=== PATIENT | female | born 1980 | race Caucasian/White ===

== ENCOUNTER → 2018-04-04 | Outpatient (CLI) | payer OTHER ==
[2018-04-04 09:46] LABS: FREE T4 0.87 NG/DL (0.76-1.46); THYROID STIMULATING HORMONE 3.98 uIU/ML (0.358-3.740)
[2018-04-04 09:49] LABS: THYROID PEROXIDASE ANTIBODY 34.7 U/ML (<60.0)
== END ==
LOC: M WUC 08:35
PROVIDERS: ATTEND Nurse Practitioner Family
DX: R94.6 Abnormal results of thyroid function studies (principal)

== ENCOUNTER → 2018-06-10 | Outpatient (CLI) | payer OTHER ==
[2018-06-10 13:15] LABS: FREE T4 0.88 NG/DL (0.76-1.46); THYROID STIMULATING HORMONE 2.61 uIU/ML (0.358-3.740)
== END ==
LOC: M WUC 09:16
PROVIDERS: ATTEND Nurse Practitioner Family
DX: R94.6 Abnormal results of thyroid function studies (principal)

== ENCOUNTER → 2018-12-13 | Outpatient (CLI) | payer BC, OTHER ==
[2018-12-13 14:03] LABS: FREE T4 0.88 NG/DL (0.76-1.46)
== END ==
LOC: M WUC 09:59
PROVIDERS: ATTEND Nurse Practitioner Family
DX: R94.6 Abnormal results of thyroid function studies (principal)

== ENCOUNTER → 2018-12-22 | Outpatient (CLI) | payer BC ==
[2018-12-22 12:15] LABS: ALBUMIN 3.6 GM/DL (3.2-5.2); BILIRUBIN,DIRECT 0.2 MG/DL (0.0-0.2); BILIRUBIN,TOTAL 0.6 MG/DL (0.2-1.0); TOTAL PROTEIN 6.5 GM/DL (6.4-8.2)
== END ==
LOC: M WUC 10:27
PROVIDERS: ATTEND Family Medicine
DX: R94.5 Abnormal results of liver function studies (principal)

== ENCOUNTER → 2019-04-19 | Outpatient (CLI) | payer BC ==
[2019-04-19 10:50] LABS: THYROID STIMULATING HORMONE 3.19 uIU/ML (0.358-3.740)
[2019-04-19 10:57] LABS: ESTRADIOL 136.8 PG/ML; PROGESTERONE 38.08 NG/ML
== END ==
LOC: M LAB 09:43
PROVIDERS: ATTEND Obstetrics & Gynecology Reproductive Endocrinology
DX: E28.9 Ovarian dysfunction, unspecified (principal)

== ENCOUNTER → 2019-06-12 | Outpatient (CLI) | payer BC ==
[2019-06-12 10:38] LABS: ESTRADIOL 76.7 PG/ML; PROGESTERONE 64.82 NG/ML
== END ==
LOC: M LAB 08:57
PROVIDERS: ATTEND Obstetrics & Gynecology Reproductive Endocrinology
DX: Z32.00 Encounter for pregnancy test, result unknown (principal); E28.9 Ovarian dysfunction, unspecified

== ENCOUNTER → 2019-06-19 | Outpatient (CLI) | payer BC ==
[2019-06-19 10:32] LABS: HCG, SERUM QUANTITATIVE < 1.0 MIU/ML
[2019-06-19 10:42] LABS: PROGESTERONE 19.92 NG/ML
== END ==
LOC: M LAB 08:53
PROVIDERS: ATTEND Obstetrics & Gynecology Reproductive Endocrinology
DX: Z32.00 Encounter for pregnancy test, result unknown (principal)

== ENCOUNTER → 2020-01-02 | Outpatient (CLI) | payer BC ==
[2020-01-02 09:24] LABS: BASO # 0.1 10^3/uL (0.0-0.2); BASO % 0.7 % (0.0-1.0); EOS # 0.3 10^3/uL (0.0-0.5); EOS % 2.5 % (0.0-3.0); HEMATOCRIT 42.5 % (36.0-47.0); HEMOGLOBIN 14.9 g/dl (12.0-15.5); LYMPH # 3.5 10^3/uL (1.5-5.0); LYMPH % 31.1 % (24.0-44.0); MEAN CORPUSCULAR HEMOGLOBIN 35.1 pg (27.0-33.0); MEAN CORPUSCULAR HGB CONC 35.1 g/dl (32.0-36.5); MONO % 8.4 % (0.0-5.0); NEUTROPHILS # 6.5 10^3/uL (1.5-8.5); NEUTROPHILS % 56.9 % (36.0-66.0); PLATELET COUNT, AUTOMATED 393 10^3/uL (150-450); RED BLOOD COUNT 4.25 10^6/uL (4.00-5.40); WHITE BLOOD COUNT 11.4 10^3/uL (4.0-10.0)
[2020-01-02 09:43] LABS: ALBUMIN 3.5 GM/DL (3.2-5.2); ALT/SGPT 78 U/L (12-78); BILIRUBIN,TOTAL 0.3 MG/DL (0.2-1.0); BLOOD UREA NITROGEN 7 MG/DL (7-18); CALCIUM LEVEL 9.6 MG/DL (8.5-10.1); CARBON DIOXIDE LEVEL 26 MEQ/L (21-32); CHLORIDE LEVEL 110 MEQ/L (98-107); CREATININE FOR GFR 0.55 MG/DL (0.55-1.30); GLOMERULAR FILTRATION RATE > 60.0 (>60); GLUCOSE, FASTING 97 MG/DL (70-100); POTASSIUM SERUM 4.3 MEQ/L (3.5-5.1); SODIUM LEVEL 141 MEQ/L (136-145); TOTAL PROTEIN 6.6 GM/DL (6.4-8.2)
[2020-01-02 09:53] LABS: TOTAL 25(OH) VITAMIN D 29.7 NG/ML (30.0-100.0)
[2020-01-02 10:05] LABS: HEPATITIS B SURFACE ANTIGEN NEGATIVE (NEGATIVE)
[2020-01-02 10:32] LABS: HEPATITIS C VIRUS ABY INDEX 0.1 INDEX (<0.8); HIV 1&2 SCREEN CENTAUR NEGATIVE (NEGATIVE)
== END ==
LOC: M LAB 08:57
PROVIDERS: ATTEND Obstetrics & Gynecology Reproductive Endocrinology
DX: E28.9 Ovarian dysfunction, unspecified (principal)

== ENCOUNTER → 2020-03-08 | Outpatient (CLI) | payer BC ==
[2020-03-08 10:11] LABS: ESTRADIOL 105.8 PG/ML; PROGESTERONE 51.9 NG/ML
== END ==
LOC: M LAB 08:21
PROVIDERS: ATTEND Obstetrics & Gynecology Reproductive Endocrinology
DX: E28.9 Ovarian dysfunction, unspecified (principal)

== ENCOUNTER → 2020-03-13 | Outpatient (CLI) | payer BC ==
[2020-03-13 07:35] LABS: HCG, SERUM QUANTITATIVE < 1.0 MIU/ML
[2020-03-13 09:23] LABS: PROGESTERONE 48.32 NG/ML
== END ==
LOC: M LAB 06:38
PROVIDERS: ATTEND Obstetrics & Gynecology Reproductive Endocrinology
DX: Z32.00 Encounter for pregnancy test, result unknown (principal)

== ENCOUNTER → 2020-05-01 | Outpatient (CLI) | payer BC ==
[2020-05-01 11:09] LABS: ESTRADIOL 130.5 PG/ML; PROGESTERONE 26.1 NG/ML
== END ==
LOC: M LAB 08:16
PROVIDERS: ATTEND Obstetrics & Gynecology Reproductive Endocrinology
DX: E28.9 Ovarian dysfunction, unspecified (principal)

== ENCOUNTER → 2020-06-12 | Outpatient (REF) | payer BC ==
[2020-06-12 17:36] LABS: HEMATOCRIT 35.6 % (36.0-47.0); HEMOGLOBIN 11.5 g/dl (12.0-15.5); MEAN CORPUSCULAR HEMOGLOBIN 31.6 pg (27.0-33.0); MEAN CORPUSCULAR HGB CONC 32.3 g/dl (32.0-36.5); MEAN CORPUSCULAR VOLUME 97.8 fl (80.0-96.0); PLATELET COUNT, AUTOMATED 424 10^3/uL (150-450); RED BLOOD COUNT 3.64 10^6/uL (4.00-5.40); WHITE BLOOD COUNT 25.2 10^3/uL (4.0-10.0)
[2020-06-12 18:50] LABS: HEPATITIS C VIRUS ABY INDEX < 0.0 INDEX (<0.8); HIV 1&2 SCREEN CENTAUR NEGATIVE (NEGATIVE)
== END ==
LOC: M LAB REF 16:45
PROVIDERS: ATTEND Obstetrics & Gynecology
DX: O09.511 Supervision of elderly primigravida, first trimester (principal)

== ENCOUNTER → 2020-07-05 | Outpatient (CLI) | payer BC ==
--- NOTE | 2020-07-05 17:04 | REP ---
INDICATION: NUCHAL TRANS - TWINS. COMPARISON: None available. TECHNIQUE: Real-time sonographic evaluation of the gravid uterus performed. FINDINGS: There is a living intrauterine twin gestation, diamniotic dichorionic. Estimated gestational age is13 weeks 0 days, EDC 01/10/2021. Closed cervical length is measured at 3.4 cm. Fetus a: Presentation: Transverse head maternal right Placenta posterior, grade 0, without evidence of placenta previa. heart rate is recorded at 144 beats per minute. Amniotic fluid is subjectively normal. [place]-rump length 68 mm equals 13 weeks 0 days. Nuchal translucency 2.2 mm is normal. Fetus b: Presentation: Transverse, left Placenta anterior, grade 0, without evidence of placenta previa. heart rate is recorded at 160 beats per minute. Amniotic fluid is subjectively normal. [place]-rump length 66 mm equals 13 weeks 0 days. Nuchal translucency 1.3 mm is normal. IMPRESSION: Viable intrauterine twin gestation as above. <Electronically signed by Jose Roberto Horne > 07/05/20 [id number]
== END ==
LOC: M WHC 14:24
PROVIDERS: ATTEND Obstetrics & Gynecology
DX: O09.511 Supervision of elderly primigravida, first trimester (principal); Z3A.13 13 weeks gestation of pregnancy

== ENCOUNTER → 2020-07-11 | Outpatient (REF) | payer BC | LOC: M LAB REF 12:16 | PROVIDERS: ATTEND Obstetrics & Gynecology | DX: Z34.01 Encounter for supervision of normal first pregnancy, first trimester (principal) ==

== ENCOUNTER → 2020-08-26 | Outpatient (CLI) | payer BC ==
--- NOTE | 2020-08-28 07:32 | REP ---
INDICATION: ANATOMY - TWINS COMPARISON: 07/05/2020 TECHNIQUE: Transabdominal obstetrical ultrasound with color Doppler evaluation. FINDINGS: Examination demonstrates diamniotic dichorionic twin gestation. Cervix measures 3.3 cm in length and appears closed. Gestational age by LMP at 20 weeks 0 days with estimated date of delivery 01/13/2021. TWIN A: Twin A identified in variable presentation along the maternal left side. Placenta is noted anterior and grade 0 without evidence for placenta previa or abruption. motion is appreciated. Amniotic fluid volume is within normal limits. FHR equals 139 beats per minute. Estimated weight by current measurements 345 grams (63rd percentile). Gestational age by current measurements: 20 weeks 0 days. Limited anatomical assessment demonstrates normal cranium, cerebral ventricles, choroid plexus, cerebellum/posterior fossa, cisterna magna, facial features, diaphragm, stomach, three-vessel cord/abdominal wall, kidneys/bladder, spine and extremities. Limited evaluation of the heart/ventricular outflow tracts noted. Echogenic focus within the left cardiac ventricle likely prominent chordae tendineae. TWIN B: Twin B identified in variable presentation along the maternal right side. Placenta is noted posterior and grade 0 without evidence for placenta previa or abruption. motion is appreciated. Amniotic fluid volume is within normal limits. FHR equals 144 beats per minute. Estimated weight by current measurements 322 grams (42nd percentile). Gestational age by current measurements: 20 weeks 0 days. Limited anatomical assessment demonstrates normal cranium, cerebral ventricles, choroid plexus, cerebellum/posterior fossa, cisterna magna, facial features, diaphragm, stomach, three-vessel cord/abdominal wall, kidneys/bladder, spine and extremities. Limited evaluation of the heart/ventricular outflow tracts noted. IMPRESSION: Diamniotic dichorionic twin gestation demonstrating relatively appropriate growth. Anatomical limitations as noted above may warrant follow-up. <Electronically signed by Govind Card > 08/28/20 [id number]
== END ==
LOC: M WHC 08:14
PROVIDERS: ATTEND Obstetrics & Gynecology
DX: O30.002 Twin pregnancy, unspecified number of placenta and unspecified number of amniotic sacs, second trimester (principal); Z3A.20 20 weeks gestation of pregnancy

== ENCOUNTER → 2020-10-04 | Outpatient (CLI) | payer BC ==
[2020-10-04 13:12] LABS: HEMATOCRIT 28.8 % (36.0-47.0); HEMOGLOBIN 9.7 g/dl (12.0-15.5); MEAN CORPUSCULAR HEMOGLOBIN 30.6 pg (27.0-33.0); MEAN CORPUSCULAR HGB CONC 33.7 g/dl (32.0-36.5); MEAN CORPUSCULAR VOLUME 90.9 fl (80.0-96.0); PLATELET COUNT, AUTOMATED 367 10^3/uL (150-450); RED BLOOD COUNT 3.17 10^6/uL (4.00-5.40); WHITE BLOOD COUNT 10.7 10^3/uL (4.0-10.0)
== END ==
LOC: M LAB 11:04
PROVIDERS: ATTEND Obstetrics & Gynecology
DX: Z34.82 Encounter for supervision of other normal pregnancy, second trimester (principal)

== ENCOUNTER → 2020-10-23 | Outpatient (REF) | payer BC ==
[2020-10-23 13:11] LABS: CREATININE, URINE 29.4 MG/DL; URINE TOTAL PROTEIN 8.2 MG/DL (0-12)
== END ==
LOC: M LAB REF 12:40
PROVIDERS: ATTEND Obstetrics & Gynecology
DX: O30.003 Twin pregnancy, unspecified number of placenta and unspecified number of amniotic sacs, third trimester (principal); Z3A.00 Weeks of gestation of pregnancy not specified

== ENCOUNTER → 2020-10-23 | Outpatient (CLI) | payer BC ==
[2020-10-23 12:53] LABS: HEMATOCRIT 30.7 % (36.0-47.0); HEMOGLOBIN 10.6 g/dl (12.0-15.5); MEAN CORPUSCULAR HEMOGLOBIN 31.5 pg (27.0-33.0); MEAN CORPUSCULAR HGB CONC 34.5 g/dl (32.0-36.5); MEAN CORPUSCULAR VOLUME 91.4 fl (80.0-96.0); PLATELET COUNT, AUTOMATED 381 10^3/uL (150-450); RED BLOOD COUNT 3.36 10^6/uL (4.00-5.40); WHITE BLOOD COUNT 10.7 10^3/uL (4.0-10.0)
[2020-10-23 13:08] LABS: ALT/SGPT 18 U/L (12-78); BILIRUBIN,TOTAL 0.4 MG/DL (0.2-1.0); CREATININE FOR GFR 0.29 MG/DL (0.55-1.30); GLOMERULAR FILTRATION RATE > 60.0 (>58); LDH LACTATE DEHYDROGENASE 167 U/L (84-246); URIC ACID 3.8 MG/DL (2.6-6.0)
== END ==
LOC: M LAB 12:03
PROVIDERS: ATTEND Obstetrics & Gynecology
DX: O30.003 Twin pregnancy, unspecified number of placenta and unspecified number of amniotic sacs, third trimester (principal)

== ENCOUNTER 2020-11-27 13:36 | Inpatient (IN) | payer BC ==
[~2020-11-27] VITALS: Ht 157.5 cm; Wt 85.2 kg
[2020-11-27] VITALS (17 sets, daily range): BP systolic 138–184; BP diastolic 70–99
[2020-11-27 14:28] LABS: HEMOGLOBIN 11.6 g/dl (12.0-15.5); MEAN CORPUSCULAR HEMOGLOBIN 31.5 pg (27.0-33.0); MEAN CORPUSCULAR HGB CONC 35.2 g/dl (32.0-36.5); MEAN CORPUSCULAR VOLUME 89.7 fl (80.0-96.0); PLATELET COUNT, AUTOMATED 356 10^3/uL (150-450); RED BLOOD COUNT 3.68 10^6/uL (4.00-5.40); WHITE BLOOD COUNT 10.6 10^3/uL (4.0-10.0)
[2020-11-27 14:57] LABS: ALT/SGPT 17 U/L (12-78); BILIRUBIN,TOTAL 0.3 MG/DL (0.2-1.0); GLOMERULAR FILTRATION RATE > 60.0 (>58); LDH LACTATE DEHYDROGENASE 182 U/L (84-246); URIC ACID 4.9 MG/DL (2.6-6.0)
[2020-11-27 15:00] LABS: CREATININE,RANDOM URINE 36.5 MG/DL; TOTAL PROTEIN,RANDOM URINE 10.7 MG/DL (0.0-12.0)
[2020-11-27] MEDS ORDERED: PRENTAB9 PO (17:41)
[2020-11-27] MEDS ORDERED: SYNT25TA PO (17:42)
[2020-11-27] MEDS: BETAMETHASONE SOLUSPAN 6MG/ML 5ML VIAL (J0702 PER 3MG) IM SCH (18:14)
[2020-11-27] MEDS ORDERED: LABETALOL 100MG/20ML VIAL IV STA (19:37)
[2020-11-27] MEDS ORDERED: ACETAMINOPHEN TAB 650MG DOSE (2X325MG) PO ONE (19:40)
[2020-11-27 20:48] LABS: HEMATOCRIT 32.9 % (36.0-47.0); HEMOGLOBIN 11.5 g/dl (12.0-15.5); MEAN CORPUSCULAR HEMOGLOBIN 31.5 pg (27.0-33.0); MEAN CORPUSCULAR VOLUME 90.1 fl (80.0-96.0); PLATELET COUNT, AUTOMATED 339 10^3/uL (150-450); RED BLOOD COUNT 3.65 10^6/uL (4.00-5.40); WHITE BLOOD COUNT 16.4 10^3/uL (4.0-10.0)
[2020-11-27] MEDS ORDERED: NALTREXONE 50 MG TAB PO SCH (21:00)
[2020-11-27 21:15] LABS: ALT/SGPT 17 U/L (12-78); BILIRUBIN,TOTAL 0.4 MG/DL (0.2-1.0); CREATININE FOR GFR 0.36 MG/DL (0.55-1.30); GLOMERULAR FILTRATION RATE > 60.0 (>58); LDH LACTATE DEHYDROGENASE 226 U/L (84-246); URIC ACID 4.9 MG/DL (2.6-6.0)
[2020-11-27] MEDS: LABETALOL 200 MG TAB PO SCH (21:32)
[2020-11-27] MEDS ORDERED: LEVO50TA5 PO (22:25)
[2020-11-27] MEDS ORDERED: NALT50TA4 PO (22:33)
[2020-11-27] MEDS ORDERED: HOME MED LIST COMPLETE! XX SCH (22:35)
[2020-11-27] MEDS ORDERED: **NOTE PATIENT COMMENT** MISC XX SCH (23:50)
[2020-11-28] VITALS (46 sets, daily range): BP systolic 120–183; BP diastolic 57–102
[2020-11-28] MEDS: NALTREXONE 4.5 MG PO SCH ×2 (00:14→21:13)
[2020-11-28] MEDS ORDERED: diphenhydrAMINE 50MG CAP PO ONE (04:00)
[2020-11-28] MEDS: BETAMETHASONE SOLUSPAN 6MG/ML 5ML VIAL (J0702 PER 3MG) IM SCH (06:26)
[2020-11-28] MEDS: miSOPROStol 50MCG 1/2 TABLET PO SCH ×3 (06:33→21:12)
[2020-11-28 07:20] LABS: HEMOGLOBIN 11.1 g/dl (12.0-15.5); MEAN CORPUSCULAR HEMOGLOBIN 31.4 pg (27.0-33.0); MEAN CORPUSCULAR HGB CONC 34.7 g/dl (32.0-36.5); MEAN CORPUSCULAR VOLUME 90.4 fl (80.0-96.0); PLATELET COUNT, AUTOMATED 350 10^3/uL (150-450); RED BLOOD COUNT 3.54 10^6/uL (4.00-5.40); WHITE BLOOD COUNT 14.3 10^3/uL (4.0-10.0)
[2020-11-28 07:22] LABS: ALT/SGPT 15 U/L (12-78); BILIRUBIN,TOTAL 0.4 MG/DL (0.2-1.0); CREATININE FOR GFR 0.44 MG/DL (0.55-1.30); GLOMERULAR FILTRATION RATE > 60.0 (>58); LDH LACTATE DEHYDROGENASE 173 U/L (84-246); URIC ACID 5.3 MG/DL (2.6-6.0)
[2020-11-28] MEDS ORDERED: AMPICILLIN SOD 2 GM in D5W MINI-BAG PLUS 100 ML IV STA (09:05)
[2020-11-28] MEDS: LEVOTHYROXINE 50MCG TABLET (0.05MG) PO SCH (09:29)
[2020-11-28] MEDS: LABETALOL 200 MG TAB PO SCH ×2 (09:31→21:13)
[2020-11-28] MEDS: AMPICILLIN SOD 1 GM in D5W MINI-BAG PLUS 50 ML IV SCH ×3 (13:14→21:12)
[2020-11-28 15:56] LABS: HEMATOCRIT 35.3 % (36.0-47.0); HEMOGLOBIN 12.2 g/dl (12.0-15.5); MEAN CORPUSCULAR HEMOGLOBIN 31.8 pg (27.0-33.0); MEAN CORPUSCULAR HGB CONC 34.6 g/dl (32.0-36.5); MEAN CORPUSCULAR VOLUME 91.9 fl (80.0-96.0); PLATELET COUNT, AUTOMATED 377 10^3/uL (150-450); RED BLOOD COUNT 3.84 10^6/uL (4.00-5.40); WHITE BLOOD COUNT 16.2 10^3/uL (4.0-10.0)
[2020-11-28] MEDS ORDERED: diphenhydrAMINE 50MG CAP PO PRN (19:00)
[2020-11-28] MEDS ORDERED: FENTANYL 2MCG/ML ROPIVACAINE 0.2% IN 0.9% NACL 100ML IVBAG As Ordered ONE (19:47)
[2020-11-28] MEDS: FENTANYL/ROPIVACAINE/NACL BAG 100 ML EPIDURAL SCH (20:09)
[2020-11-28] MEDS: LR 1,000 ML IV SCH (20:42)
[2020-11-28] MEDS ORDERED: REFRIGERATOR IV KEYS XX PRN (20:55)
[2020-11-28] MEDS ORDERED: ONDANSETRON 4MG/2ML VIAL IV PRN (20:55)
[2020-11-28] MEDS ORDERED: LACTATED RINGER'S 1000 ML IV PRN (20:55)
[2020-11-28] MEDS ORDERED: EPIDURAL COMMENT XX SCH (20:55)
[2020-11-28] MEDS ORDERED: EPIDURAL/PCA KEYS XX PRN (20:55)
[2020-11-28] MEDS ORDERED: NALOXONE INJ 0.4MG/1ML VIAL (J2310 PER 1MG) IV PRN (20:55)
[2020-11-28] MEDS ORDERED: diphenhydrAMINE 50MG/ML VIAL (J1200) IV PRN (20:55)
[2020-11-28] MEDS ORDERED: ePHEDrine SULFATE 25 MG/5 ML(5MG/ML) SYRINGE IV PRN (20:55)
[2020-11-28] MEDS ORDERED: BICITRA 30ML SOLN UDC As Ordered ONE (22:16)
[2020-11-28] MEDS ORDERED: ceFAZolin SOD 2 GM in IV 1 EA IV ONE (22:30)
[2020-11-28] MEDS ORDERED: BICITRA 30ML SOLN UDC PO ONE (22:30)
[2020-11-29] VITALS (50 sets, daily range): BP systolic 119–184; BP diastolic 58–93
[2020-11-29] MEDS: miSOPROStol 50MCG 1/2 TABLET PO SCH (01:25)
[2020-11-29] MEDS: AMPICILLIN SOD 1 GM in D5W MINI-BAG PLUS 50 ML IV SCH ×2 (01:56→06:06)
[2020-11-29] MEDS: LR 1,000 ML IV SCH ×2 (04:45→18:53)
[2020-11-29] MEDS ORDERED: FENTANYL 2MCG/ML ROPIVACAINE 0.2% IN 0.9% NACL 100ML IVBAG As Ordered ONE (04:58)
[2020-11-29] MEDS: FENTANYL/ROPIVACAINE/NACL BAG 100 ML EPIDURAL SCH (05:04)
[2020-11-29] MEDS ORDERED: BICITRA 30ML SOLN UDC PO SCH (06:00)
[2020-11-29] MEDS ORDERED: ceFAZolin SOD 2 GM in IV 1 EA IV ONE ×2 (06:00→09:30)
[2020-11-29] MEDS: LEVOTHYROXINE 50MCG TABLET (0.05MG) PO SCH (06:06)
[2020-11-29] MEDS: LABETALOL 200 MG TAB PO SCH (08:39)
[2020-11-29] MEDS ORDERED: AZITHROMYCIN INJ 500 MG, VIAL MATE ADAPTER 1 EACH in NS 250 ML IV ONE (09:30)
[2020-11-29] MEDS ORDERED: BICITRA 30ML SOLN UDC PO ONE (09:30)
[2020-11-29 09:51] LABS: HEMATOCRIT 31.5 % (36.0-47.0); HEMOGLOBIN 10.9 g/dl (12.0-15.5); MEAN CORPUSCULAR HEMOGLOBIN 31.7 pg (27.0-33.0); MEAN CORPUSCULAR HGB CONC 34.6 g/dl (32.0-36.5); MEAN CORPUSCULAR VOLUME 91.6 fl (80.0-96.0); PLATELET COUNT, AUTOMATED 351 10^3/uL (150-450); RED BLOOD COUNT 3.44 10^6/uL (4.00-5.40); WHITE BLOOD COUNT 13.5 10^3/uL (4.0-10.0)
[2020-11-29 10:34] LABS: ALT/SGPT 19 U/L (12-78); BILIRUBIN,TOTAL 0.4 MG/DL (0.2-1.0); CREATININE FOR GFR 0.45 MG/DL (0.55-1.30); GLOMERULAR FILTRATION RATE > 60.0 (>58); LDH LACTATE DEHYDROGENASE 158 U/L (84-246); URIC ACID 5.6 MG/DL (2.6-6.0)
[2020-11-29] MEDS ORDERED: RHOGAM 300 MCG (1500 IU) INJ (J2790) IM SCH (12:30)
[2020-11-29] MEDS ORDERED: OXYTOCIN DRIP 30 UNITS in IV 1 EA IV SCH (12:30)
[2020-11-29] MEDS ORDERED: ONDANSETRON 4MG/2ML VIAL IV PRN ×3 (12:30→16:35)
[2020-11-29] MEDS ORDERED: MEASLES,MUMPS,RUBELLA VACCINE INJ (MMR-II) (90707) SC SCH (12:30)
[2020-11-29] MEDS ORDERED: MOM 30ML SUSPENSION UDC PO PRN (12:30)
[2020-11-29] MEDS ORDERED: dexameTHASONE 4 MG/ML 1ML VIAL (J1100 PER 1MG) As Ordered ONE (12:50)
[2020-11-29] MEDS ORDERED: ONDANSETRON 4MG/2ML VIAL As Ordered ONE (12:50)
[2020-11-29] MEDS ORDERED: OXYTOCIN INJ 10 UNITS/ML VIAL (J2590) As Ordered ONE (12:50)
[2020-11-29] MEDS ORDERED: KETOROLAC 60MG 2ML VIAL As Ordered ONE (12:50)
[2020-11-29] MEDS ORDERED: MORPHINE PRES-FREE INJ 10 MG/10 ML VIAL (J2274) As Ordered ONE (12:51)
[2020-11-29] MEDS ORDERED: LIDOCAINE PRES-FREE 2% 10ML AMP As Ordered ONE (12:52)
[2020-11-29] MEDS ORDERED: PERCOCET PO (12:55)
[2020-11-29] MEDS ORDERED: KETAMINE HCL 200 MG/20 ML VIAL As Ordered ONE (13:23)
[2020-11-29] MEDS ORDERED: NALBUPHINE HCL 10 MG/ML AMP (J2300) IV PRN (13:30)
[2020-11-29] MEDS ORDERED: diphenhydrAMINE 50MG/ML VIAL (J1200) IV PRN (13:30)
[2020-11-29] MEDS ORDERED: METOCLOPRAMIDE INJ 10MG/2ML VIAL (J2765 PER 1) IV PRN ×2 (13:30→16:35)
[2020-11-29] MEDS ORDERED: NALOXONE INJ 0.4MG/1ML VIAL (J2310 PER 1MG) IV PRN ×2 (13:30)
[2020-11-29] MEDS ORDERED: fentaNYL 100 MCG/2 ML INJECTION (J3010) As Ordered ONE ×2 (14:00→16:23)
[2020-11-29] MEDS ORDERED: OXYTOCIN 30 UNITS IN 0.9% NaCl 500ML IV BAG (J2590) As Ordered ONE (14:16)
[2020-11-29 14:36] LABS: CORD GAS ABE A -0.8; CORD GAS HCO3 A 26.5 MEQ/L; CORD GAS PCO2 A 53.8 mmHg; CORD GAS PH A 7.31 UNITS; CORD GAS PO2 A 16.3 mmHg; CORD GAS TCO2 A 28.1 MEQ/L
[2020-11-29 14:37] LABS: CORD GAS O2 SAT A 33.2 %
[2020-11-29 14:41] LABS: CORD GAS ABE V -1.7; CORD GAS HCO3 V 23.8 MEQ/L; CORD GAS O2 SAT V 65.9 %; CORD GAS PCO2 V 43.2 mmHg; CORD GAS PH V 7.359 UNITS; CORD GAS PO2 V 26.7 mmHg; CORD GAS SBC V 22.2 MEQ/L; CORD GAS TCO2 V 25.1 MEQ/L
[2020-11-29 14:47] LABS: CORD GAS ABE A -8.2; CORD GAS HCO3 A 16.5 MEQ/L; CORD GAS O2 SAT A 96.4 %; CORD GAS PCO2 A 31.4 mmHg; CORD GAS PH A 7.338 UNITS; CORD GAS PO2 A 65.2 mmHg; CORD GAS SBC A 17.8 MEQ/L; CORD GAS TCO2 A 17.4 MEQ/L
[2020-11-29 14:49] LABS: CORD GAS ABE V -9.7; CORD GAS HCO3 V 14.9 MEQ/L; CORD GAS O2 SAT V 99.3 %; CORD GAS PCO2 V 28.6 mmHg; CORD GAS PH V 7.335 UNITS; CORD GAS PO2 V 106.5 mmHg; CORD GAS SBC V 16.7 MEQ/L; CORD GAS TCO2 V 15.8 MEQ/L
[2020-11-29] MEDS ORDERED: LABETALOL 100MG/20ML VIAL IV STA ×3 (14:55→20:58)
[2020-11-29] MEDS ORDERED: LABETALOL 100MG/20ML VIAL As Ordered ONE (14:59)
--- NOTE | 2020-11-29 15:07 | RO ---
OPERATIVE NOTE DATE OF OPERATION: 11/29/2020 [place] is a 40-year-old female, 1, para 0, twin gestation post IVF, who was admitted at 33-4/7 weeks gestation with severe preeclampsia. She underwent Cytotec induction. After four Cytotec there was no cervical change. Given her severe preeclampsia being remote from delivery she was counseled and decision was made to proceed with primary low transverse section. PREOPERATIVE DIAGNOSES: 1. Twin gestation at 33-4/7 weeks gestation, status post beta for lung maturity. 2. Severe preeclampsia, remote from delivery. 3. Failed induction. POSTOPERATIVE DIAGNOSES: 1. Twin gestation at 33-4/7 weeks gestation, status post beta for lung maturity. 2. Severe preeclampsia, remote from delivery. 3. Failed induction. PROCEDURE: Primary low transverse section. SURGEON: Sacha Herrmann DO SUSTAINABILITY COACH: ANESTHESIA: Epidural. COMPLICATIONS: None. ESTIMATED BLOOD LOSS: 600 mL FINDINGS: Live male , both babies were cared for by our vessel captain. Normal appearing tubes and ovaries. The patient does have a small fibroid. Placenta was removed manually. PROCEDURE: After obtaining informed consent, the patient was taken to the operating room where epidural anesthetic was found to be adequate. She was then draped and prepped in the usual sterile fashion in the supine position. At this point a Pfannenstiel incision was made. This was carried down to the fascia. The fascia was incised in a midline fashion and carried through laterally. The superior aspect of the fascia was then grasped with Gian clamp, tented off and dissected off the rectus muscles sharply. The inferior aspect was dissected off in a similar fashion. The rectus muscles were in midline fashion. The peritoneum was identified. The peritoneal cavity was entered bluntly. Superior and inferior dissection of the peritoneum was then done with good visualization of the bladder. At this point, a Mobius skin retractor was placed. A low transverse uterine incision was made. was delivered in atraumatic fashion, nose and mouth were suctioned, cord clamped and was handed over to the waiting vessel captain. The second fetus the bag was ruptured, again delivered with compound left hand in no acute distress, Cord was doubly clamped and cut and infant was handed over to waiting vessel captain. Cord gases were sent. The placenta was removed manually. The uterus was then cleared of all clot and debris and the uterine incision was repaired in two separate layers of #0 Vicryl sutures. The pelvis was copiously irrigated with normal saline and suctioned out. Attention was turned to the peritoneum which was closed in a running fashion using 2-0 Vicryl. The fascia was closed in two separate segments of #0 Vicryl sutures. All superficial bleeders were coagulated and the skin was reapproximated in subcuticular fashion using 3-0 Vicryl on a Andre. Steri-Strips were placed. The patient tolerated the procedure well. She was then transferred to recovery room in stable condition cc: [facility]
[2020-11-29] MEDS ORDERED: MAGNESIUM *L&D* 4GM/100ML BAG (40MG/ML) IV ONE (15:15)
[2020-11-29] MEDS ORDERED: MAGNESIUM *L&D* 4GM/100ML BAG (40MG/ML) As Ordered ONE (15:26)
[2020-11-29] MEDS ORDERED: LIDOCAINE 1% MDV 50ML VIAL SC ONE (15:30)
[2020-11-29] MEDS ORDERED: MAG Sulf (OBGYN) 20GM/500ML 20,000 MG in IV 1 EA IV SCH (15:30)
[2020-11-29] MEDS ORDERED: ALBUTEROL SULFATE 2.5 MG/0.5 ML INH NEB SOLN NEB ONE ×2 (15:40→21:00)
[2020-11-29] MEDS ORDERED: MAGNESIUM SULFATE 4% INJ 20GM/500ML (40MG/ML) As Ordered ONE (15:43)
[2020-11-29] MEDS ORDERED: PERCOCET 5MG/325MG TAB PO PRN (16:35)
[2020-11-29] MEDS ORDERED: LR 1,000 ML IV SCH (16:35)
[2020-11-29] MEDS: fentaNYL 100 MCG/2 ML INJECTION (J3010) IV PRN ×2 (16:37→16:50)
[2020-11-29] MEDS: PERCOCET 5MG/325MG TAB PO PRN (18:28)
[2020-11-29] MEDS ORDERED: LABETALOL 200 MG TAB PO SCH (21:00)
[2020-11-29] MEDS: MAG Sulf (OBGYN) 20GM/500ML 20,000 MG in IV 1 EA IV SCH (21:21)
[2020-11-29 21:25] LABS: HEMATOCRIT 31.2 % (36.0-47.0); HEMOGLOBIN 10.8 g/dl (12.0-15.5); MEAN CORPUSCULAR HEMOGLOBIN 31.8 pg (27.0-33.0); MEAN CORPUSCULAR HGB CONC 34.6 g/dl (32.0-36.5); MEAN CORPUSCULAR VOLUME 91.8 fl (80.0-96.0); PLATELET COUNT, AUTOMATED 326 10^3/uL (150-450); WHITE BLOOD COUNT 19.2 10^3/uL (4.0-10.0)
[2020-11-29 21:49] LABS: ALT/SGPT 23 U/L (12-78); BILIRUBIN,TOTAL 0.4 MG/DL (0.2-1.0); GLOMERULAR FILTRATION RATE > 60.0 (>58); LDH LACTATE DEHYDROGENASE 200 U/L (84-246); MAGNESIUM LEVEL 3.6 MG/DL (1.8-2.4); URIC ACID 5.2 MG/DL (2.6-6.0)
[2020-11-29] MEDS: DOCUSATE SODIUM 100MG CAPSULE PO SCH (22:55)
[2020-11-30] VITALS (47 sets, daily range): BP systolic 128–189; BP diastolic 66–100
[2020-11-30] MEDS: PERCOCET 5MG/325MG TAB PO PRN ×5 (04:10→22:30)
[2020-11-30] MEDS: LABETALOL 100MG TAB PO SCH ×2 (04:45→16:12)
[2020-11-30] MEDS: LEVOTHYROXINE 50MCG TABLET (0.05MG) PO SCH (06:39)
[2020-11-30] MEDS: LR 1,000 ML IV SCH (07:01)
[2020-11-30 07:04] LABS: HEMOGLOBIN 9.7 g/dl (12.0-15.5); MEAN CORPUSCULAR HGB CONC 33.4 g/dl (32.0-36.5); MEAN CORPUSCULAR VOLUME 92.7 fl (80.0-96.0); PLATELET COUNT, AUTOMATED 308 10^3/uL (150-450); RED BLOOD COUNT 3.13 10^6/uL (4.00-5.40); WHITE BLOOD COUNT 14.7 10^3/uL (4.0-10.0)
[2020-11-30] MEDS: MAG Sulf (OBGYN) 20GM/500ML 20,000 MG in IV 1 EA IV SCH (07:17)
--- NOTE | 2020-11-30 08:04 | REPVR ---
PROCEDURE INFORMATION: Exam: XR Chest Exam date and time: 11/30/2020 6:41 AM Age: 40 years old Clinical indication: Shortness of breath; Additional info: SOB TECHNIQUE: Imaging protocol: XR of the chest. Views: 1 view. COMPARISON: No relevant prior studies available. FINDINGS: Patient is lordotic lead positioned. Cardiac silhouette is at the upper limits of normal in size for a portable radiograph. There are increased reticular opacities throughout both lungs with no focal consolidation. No pleural effusion or pneumothorax. IMPRESSION: Findings suggest mild interstitial edema. Electronically signed by: Marcello Kathleen On 11/30/2020 08:04:10 AM
[2020-11-30] MEDS ORDERED: FUROSEMIDE 40MG/4ML VIAL (J1940) IV ONE (08:15)
[2020-11-30 08:33] LABS: CK-MB VALUE MASS 3.8 NG/ML (<3.6); MB/CK RELATIVE INDEX 3.45 (< OR =4); TROPONIN I 0.02 NG/ML (< 0.10)
[2020-11-30] MEDS: DOCUSATE SODIUM 100MG CAPSULE PO SCH ×2 (09:00→21:58)
[2020-11-30] MEDS: PRENATAL VITAMINS CHEWABLE TABLET PO SCH (09:05)
[2020-11-30] MEDS ORDERED: LABETALOL 100MG/20ML VIAL IV STA (09:20)
[2020-11-30] MEDS ORDERED: hydrALAZINE 20MG/ML 1ML VIAL (J0360 PER 20MG) IV STA (10:44)
--- NOTE | 2020-11-30 10:48 | CR.PDOC ---
General Date of Consultation: Nov 30, 2020 Referring Provider: Sacha Herrmann DO Attending Physician: JULIANNE PIMENTEL DO Consultation REASON FOR CONSULTATION/CHIEF COMPLAINT: Shortness of breath with preeclampsia. HISTORY OF PRESENT ILLNESS: Patient is a 40-year-old G1 now P2200 who presented the hospital on 11/27/2020 from her OB office with elevated blood pressure. Patient was 33 weeks and 2 days gestation at that time and due to severe preeclampsia, patient was induced. Patient did not have any cervical roving changer the past few days and the decision was made on 11/29/2020 to perform a . Patient has developed shortness of breath after the . Patient had oxygen placed which has been able to maintain the patient's oxygen saturations above 95%. Patient states that she feels like she is not able to clear her throat and feels like she has a chest cold. Patient says it does hurt to breathe that this is in her abdomen due to the incision. Patient i s also complaining some leg swelling. Patient denies any chest pain. Patient is otherwise feeling well. ALLERGIES: Please see below. HOME MEDICATIONS: Please see below. PAST MEDICAL HISTORY: Patient denies any past medical history PAST SURGICAL HISTORY: 1. performed 11/29/2020 FAMILY HISTORY: Unsure of her family history as the patient is adopted SOCIAL HISTORY: Patient denies smoking, drinking alcohol, or illicit drug use. 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 Hematologic: Patient denies any easy bruising. Lymphatic: Patient denies any lumps lumps or bumps in neck, axilla, or groin PHYSICAL EXAMINATION: VITAL SIGNS: Please see below. General: Alert and oriented female patient with nasal cannula oxygen on when I walked in. Patient not appear to be in any acute distress. HEENT: Normocephalic, atraumatic, moist mucous membranes. Neck: No lymphadenopathy or thyromegaly Cardiac: Regular rate and rhythm, no murmurs, normal S1, normal S2 Pulm: Inspiratory crackles heard in the lower two thirds of the lung field with end expiratory wheezing Abd: Nondistended, nontender to palpation, normal bowel sounds Ext: 1+ pitting edema on the dorsum of the feet bilaterally with trace pitting edema up to the level of the knees bilaterally LABORATORY DATA: Please see below. ASSESSMENT/PLAN: Patient is a 40-year-old G1 now P2200 female who had a C- section yesterday due to severe preeclampsia who developed shortness of breath. INSURANCE CASE MANAGER has consulted hospitalist for further management. 1. Shortness of breath. Patient developed shortness of breath overnight. Chest x-ray was ordered by Dr. Herrmann of INSURANCE CASE MANAGER. Patient appears to have pulmonary edema which is most likely secondary to the patient's severe preeclampsia. Cardiac markers were ordered and were negative. Pro BNP was elevated at 763. EKG showed prolonged QT but was otherwise normal. Patient has an echocardiogram pending. Patient was given 40 mg of IV Lasix and the patient will be monitored very closely. Patient is currently receiving magnesium sulfate IV for her preeclampsia. 2. Severe preeclampsia. This is most likely the etiology of the patient's pulmonary edema. Echocardiogram has been ordered to make sure the patient is nonperipartum cardiomyopathy however, the patient's cardiac markers are negative. We will continue to monitor the patient. Patient will be continue to manage by INSURANCE CASE MANAGER. 3. after . Management per INSURANCE CASE MANAGER. 4. DVT prophylaxis: Teds and sequentials 5. CODE STATUS: Full code Disposition: We will continue to monitor patient closely and await the echocardiogram result. Thank for the consult hospitalist will follow along. Vital Signs/I&O Vital Signs Date Time Temp Pulse Resp B/P (MAP) Pulse Ox O2 Delivery O2 Flow Rate FiO2 11/30/20 10:31 18 98 11/30/20 10:24 72 11/30/20 10:12 173/83 (113) 11/30/20 09:05 Nasal Cannula 2.0 11/30/20 07:39 98 11/30/20 05:53 97.3 I&O- Last 24 Hours up to 6 AM 11/30/20 06:00 Intake Total 1130 ml Output Total 6000 ml Balance -4870 ml Laboratory Data Labs 24H Laboratory Tests 2 11/29/20 10:56: Coronavirus (COVID-19)(PCR) NEGATIVE 11/29/20 13:51: Cord Arterial Blood pH 7.338, Cord Arterial Blood PCO2 31.4, Cord Arterial Blood PO2 65.2, Cord Arterial Blood HCO3 16.5, Cord Arterial Blood Total CO2 17.4, Cord Arterial Blood Base Excess -8.2, Cord Arterial Base Excess (Standard 17.8, Cord Arterial Bld Oxygen Saturation 96.4, Cord Venous Blood pH 7.335, Cord Venous Blood PCO2 28.6, Cord Venous Blood PO2 106.5, Cord Venous Blood HCO3 14.9, Cord Venous Blood Total CO2 15.8, Cord Venous Base Excess (Actual) -9.7, Cord Venous Base Excess (Standard) 16.7, Cord Venous Blood Oxygen Saturation 99.3 11/29/20 21:16: Nucleated Red Blood Cells % (auto) 0.0, Glomerular Filtration Rate > 60.0, Uric Acid 5.2, Magnesium Level 3.6H, Total Bilirubin 0.4, Aspartate Amino Transf (AST/SGOT) 23, Alanine Aminotransferase (ALT/SGPT) 23, Lactate Dehydrogenase 200 11/30/20 06:45: Nucleated Red Blood Cells % (auto) 0.0 11/30/20 07:49: Total Creatine Kinase 110, Creatine Kinase MB 3.8H, Creatine Kinase MB Relative Index 3.45, Troponin I 0.02, ML-Rox-D-Type Natriuretic Peptide 763H CBC/BMP Laboratory Tests 11/29/20 21:16 11/30/20 06:45 Allergies Coded Allergies: No Known Allergies (Unverified , 11/27/20) Home Medications Scheduled Levothyroxine Sodium (Levothyroxine Sodium) 50 Mcg Tablet, 50 MCG PO DAILY for 30 Days, #30 (Reported) Naltrexone HCl (Naltrexone HCl) 50 Mg Tablet, 4.5 MG PO QHS for 30 Days, #30 (Reported) No.137/Iron/Folic Acd ( Vitamin Tablet) 1 Each Tablet, 1 TAB PO DAILY, (Reported) Scheduled PRN Oxycodone/Acetaminophen (Oxycodone-Acetaminophen 5-325) 1 Each Tablet, 1 TAB PO Q4H PRN for MILD/MODERATE PAIN (PS 1-7), #20 JULIANNE PIMENTEL DO Nov 30, 2020 10:48
--- NOTE | 2020-11-30 13:02 | ECHO ---
ECHOCARDIOGRAM DATE OF PROCEDURE: 11/30/2020 Age: 40 Gender: Female Height: 155 cm Weight: 85 kg REFERRING PHYSICIAN: Dr. Akash Jim INDICATION: Edema, elevated blood pressure, section yesterday MEASUREMENTS: IVS 1.1 cm LV 5.8 cm LV systolic 4.6 cm LVPW 1.1 cm Mitral E wave velocity 104 Mitral A wave velocity 84 E Prime septal 6.6 E Prime lateral 8.1 RV 2.3 IVC 2.4 FINDINGS: This study is of good technical quality. Patient is in sinus rhythm. Left ventricle is mildly dilated. There is mildly reduced LV systolic function, estimated EF around 50%, computer calculated LVEF was 47%. Right ventricle is normal size and systolic function. Both atria appear to be mildly enlarged. There are normal appearing aortic, mitral, tricuspid and pulmonic valves. Trivial pericardial effusion is noted. Inferior vena cava is dilated, but does collapse with inspiration indicative of likely mildly elevated central venous pressure. Aortic root, aortic arch and visualized segment of abdominal aorta appear normal. Doppler interrogation reveals trace aortic insufficiency, mild to moderate mitral insufficiency and mild tricuspid insufficiency. Calculated pulmonary artery pressure is around 40 mmHg, corresponding to mild to moderate pulmonary hypertension. Mitral inflow pattern and tissue Doppler imaging of mitral annulus likely revealed grade 2 diastolic dysfunction. CONCLUSIONS: 1. Study is of good technical quality, underlying sinus rhythm. 2. Mildly dilated left ventricle with mild left ventricular systolic dysfunction and estimated LVEF approximately 45 to 50%. Grade 2 diastolic dysfunction. 3. Trace aortic insufficiency. 4. Mild to moderate mitral insufficiency. 5. Elevated central venous pressure and mild to moderate pulmonary hypertension. 6. Trace pericardial effusion. COMMENT: The study results were communicated to Dr. Jim, ordering physician. ARTEMIO
[2020-11-30] MEDS: SIMETHICONE 80MG CHEW TAB PO PRN (13:11)
[2020-11-30] MEDS ORDERED: IBUPROFEN 600MG TAB PO PRN (13:15)
[2020-11-30] MEDS: IBUPROFEN 800 MG TAB PO PRN ×4 (13:26→23:41)
[2020-11-30] MEDS: diphenhydrAMINE 50MG CAP PO SCH (22:10)
[2020-12-01] VITALS (12 sets, daily range): BP systolic 133–190; BP diastolic 62–91
[2020-12-01] MEDS: LABETALOL 100MG TAB PO SCH ×2 (04:30→17:06)
[2020-12-01] MEDS: PERCOCET 5MG/325MG TAB PO PRN ×2 (04:41→19:37)
[2020-12-01] MEDS: LEVOTHYROXINE 50MCG TABLET (0.05MG) PO SCH (06:25)
[2020-12-01] MEDS: PRENATAL VITAMINS CHEWABLE TABLET PO SCH (07:19)
[2020-12-01] MEDS: DOCUSATE SODIUM 100MG CAPSULE PO SCH ×2 (07:20→20:28)
--- NOTE | 2020-12-01 09:31 | IPNPDOC ---
Text Note Date of Service The patient was seen on 12/01/20. NOTE Subjective: Patient is a 40-year-old G1 now P2200 female who presented to the hospital on 11/27/2020 from her contract writer's office with elevated blood pressure. Patient is now 2 days post . Patient had hospitalist consult yesterday due to shortness of breath. Patient states that the shortness of breath has improved and is no longer requiring oxygen therapy. Patient is feeling much better. Patient's blood pressures are still mildly elevated but she is otherwise doing well. Review of systems: General: Patient denies fevers HEENT: Patient denies headaches Cardiovascular: Patient denies chest pain Respiratory: Patient denies shortness of breath, cough GI: Patient denies abdominal pain, nausea, vomiting, diarrhea : Patient denies increased frequency or pain with urination Extremities: Patient denies swelling or pain in extremities Neurological: Patient denies numbness or tingling in legs Physical exam: Vitals: See below General: Alert and oriented female who is sitting the bedside chair and I walked in the room. Patient did not appear to be in any acute distress. HEENT: Normocephalic, atraumatic, moist mucous membranes. Neck: No lymphadenopathy or thyromegaly Cardiac: Regular rate and rhythm, no murmurs, normal S1, normal S2 Pulm: Clear to auscultation bilaterally. No wheezes, rhonchi, rales Abd: Nondistended, nontender to palpation, normal bowel sounds Ext: 1+ pitting edema in the feet bilaterally Labs: See below Imaging: Echocardiogram performed on 11/30/2020 was reported to show study is of good technical quality, underlying sinus rhythm. Mildly dilated left ventricle with mild left ventricular systolic dysfunction and estimated left ventricle ejection fraction approximate 45 to 50%. Grade 2 diastolic dysfunction. Trace aortic insufficiency. Mild to moderate mitral insufficiency. Elevated central venous pressure and mild to moderate pulmonary hypertension. Trace pericardial effusion. Assessment/plan: Patient is a 40-year-old G1 now P2200 female who is 2 days who presented to the hospital and severe preeclampsia who was found to be short of breath with pulmonary edema. 1. Shortness of breath. Patient's shortness of breath has improved to the point where she no longer feels short of breath. Patient's lungs are clear on examination today. Patient received a dose of IV Lasix 40 mg yesterday. I do not believe she needs any more diuretic therapy at this time. Echocardiogram was performed and read yesterday. Continue to monitor the patient's for development of worsening pulmonary edema but at this point, patient does not need any further diuresis. Patient should follow up with her primary care provider for a repeat echocardiogram in 6 weeks. 2. Severe preeclampsia. This is the most likely etiology the patient's pulmonary edema. We will continue to monitor the patient. Patient will be continued to be managed by INSTALLMENT ACCOUNT CHECKER. 3. after day 2. Management per INSTALLMENT ACCOUNT CHECKER DVT Prophylaxis: Teds and sequentials Disposition: Patient shortness of breath has improved. Discharge per INSTALLMENT ACCOUNT CHECKER. Since the patient's shortness of breath is improved, I have spoken with the patient's INSTALLMENT ACCOUNT CHECKER, Dr. Herrmann and hospitalist will sign off at this time. Please reconsult hospitalist if the need arises. Patient should follow-up with her [facility] provider for repeat echocardiogram in 6 weeks. VS,Fishbone, I+O VS, Fishbone, I+O Vital Signs Date Time Temp Pulse Resp B/P (MAP) Pulse Ox O2 Delivery O2 Flow Rate FiO2 12/01/20 06:14 69 144/66 (92) 12/01/20 04:41 18 97 Room Air 12/01/20 01:16 97.9 11/30/20 09:05 2.0 11/30/20 07:39 98 I&O- Last 24 Hours up to 6 AM 12/01/20 06:00 Intake Total 4702.6 ml Output Total 4600 ml Balance 102.6 ml JULIANNE PIMENTEL DO Dec 01, 2020 09:31
[2020-12-01] MEDS: IBUPROFEN 800 MG TAB PO PRN ×3 (09:36→23:07)
[2020-12-01] MEDS: SIMETHICONE 80MG CHEW TAB PO PRN (09:56)
[2020-12-01] MEDS ORDERED: FLEET ENEMA PR PRN (10:15)
[2020-12-01] MEDS ORDERED: IBUPROFEN 800 MG TAB PO PRN (10:15)
[2020-12-01] MEDS: NIFEdipine 30 MG XL TAB PO SCH (14:29)
[2020-12-01] MEDS: diphenhydrAMINE 50MG CAP PO SCH (20:28)
[2020-12-01] MEDS ORDERED: NIFEdipine 10 MG CAP PO ONE (21:15)
[2020-12-02] VITALS (16 sets, daily range): BP systolic 143–185; BP diastolic 65–108
[2020-12-02] MEDS: PERCOCET 5MG/325MG TAB PO PRN ×4 (01:17→22:47)
[2020-12-02] MEDS: LEVOTHYROXINE 50MCG TABLET (0.05MG) PO SCH (05:05)
[2020-12-02] MEDS: LABETALOL 100MG TAB PO SCH (05:07)
[2020-12-02] MEDS: IBUPROFEN 800 MG TAB PO PRN ×2 (05:38→17:35)
--- NOTE | 2020-12-02 08:04 | ECGEPIP ---
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 Clincal correlation advised Electronically Signed on 12-02-2020 8:04:28 EDT by Layton Marks
[2020-12-02] MEDS: DOCUSATE SODIUM 100MG CAPSULE PO SCH ×2 (08:28→20:39)
[2020-12-02] MEDS: PRENATAL VITAMINS CHEWABLE TABLET PO SCH (08:28)
[2020-12-02] MEDS: NIFEdipine 30 MG XL TAB PO SCH (08:28)
[2020-12-02] MEDS ORDERED: CHLORTHALIDONE 25 MG TAB PO SCH (09:00)
[2020-12-02] MEDS: LABETALOL 200 MG TAB PO SCH ×3 (09:35→20:40)
[2020-12-02] MEDS ORDERED: BOOSTRIX/ADACEL VACCINE (DIPHTH/PERTUSS/ACELL/TETANUS) 0.5ML SYR IM ONE (10:00)
--- NOTE | 2020-12-02 10:18 | IPNPDOC ---
Progress Note Date of Service: Dec 02, 2020 Day#: 3 Progress Note SUBJECT: [place] is a 40-year-old female who is 3 days postoperative from a prim lauren section. The section was done due to preeclampsia with severe features. Medicine was consulted on 11/30/20 and given Lasix for pulmonary edema. EKG was normal. She had complaints of SOB. She denies this currently. She reports a headache currently. She reports she is ambulating without difficulty, voiding and eating a regular diet. She reports she is concerned about her blood pressures. OBJECTIVE: VITAL SIGNS: Within normal limits, afebrile. Alert and oriented times three. Speech is clear. Breath sounds clear to auscultation bilateral. Regular rate and rhythm. Abdomen: Fundus firm at U-2. Incision is approximated without erythema. Extremities: Pitting edema from her feet up to her thighs. 2+ pitting. Minimal lochia. ASSESSMENT: Day 3 postoperative, preeclampsia with severe features PLAN: 1. Reviewed findings with Dr. Luther and plan of care made. Will increase La betalol 400 mg TID, continue with Nifedipine XL 30 mg, and start Chlorthalidone 25 mg daily. Reviewed side effects of medication. 2. Continue to monitor and consider discharge tomorrow if her blood pressures are better and she isn't symptomatic. VS, I&O, 24H, Fishbone Vital Signs/I&O Vital Signs Date Time Temp Pulse Resp B/P (MAP) Pulse Ox O2 Delivery O2 Flow Rate FiO2 12/02/20 09:35 84 177/90 12/02/20 08:59 18 12/02/20 08:29 Room Air 12/02/20 06:07 97.1 99 11/30/20 09:05 2.0 11/30/20 07:39 98 I&O- Last 24 Hours up to 6 AM 12/02/20 06:00 Output Total 1500 ml Balance -1500 ml SOFÍA NEVES CNM Dec 02, 2020 10:17
[2020-12-02 11:41] LABS: HEMATOCRIT 31.8 % (36.0-47.0); MEAN CORPUSCULAR HEMOGLOBIN 31.4 pg (27.0-33.0); MEAN CORPUSCULAR HGB CONC 34.6 g/dl (32.0-36.5); MEAN CORPUSCULAR VOLUME 90.9 fl (80.0-96.0); PLATELET COUNT, AUTOMATED 377 10^3/uL (150-450)
[2020-12-02 12:17] LABS: ALT/SGPT 29 U/L (12-78); BILIRUBIN,TOTAL 0.3 MG/DL (0.2-1.0); CREATININE FOR GFR 0.35 MG/DL (0.55-1.30); GLOMERULAR FILTRATION RATE > 60.0 (>58); LDH LACTATE DEHYDROGENASE 223 U/L (84-246); URIC ACID 4.7 MG/DL (2.6-6.0)
[2020-12-02] MEDS: diphenhydrAMINE 50MG CAP PO SCH ×2 (20:39→22:46)
[2020-12-03] VITALS (11 sets, daily range): BP systolic 131–181; BP diastolic 71–98
[2020-12-03] MEDS: PERCOCET 5MG/325MG TAB PO PRN ×2 (03:08→21:45)
[2020-12-03] MEDS: LEVOTHYROXINE 50MCG TABLET (0.05MG) PO SCH (05:47)
[2020-12-03] MEDS: IBUPROFEN 800 MG TAB PO PRN ×2 (05:48→12:07)
[2020-12-03 08:30] LABS: HEMATOCRIT 33.5 % (36.0-47.0); HEMOGLOBIN 11.5 g/dl (12.0-15.5); MEAN CORPUSCULAR HEMOGLOBIN 30.9 pg (27.0-33.0); MEAN CORPUSCULAR HGB CONC 34.3 g/dl (32.0-36.5); MEAN CORPUSCULAR VOLUME 90.1 fl (80.0-96.0); PLATELET COUNT, AUTOMATED 292 10^3/uL (150-450); RED BLOOD COUNT 3.72 10^6/uL (4.00-5.40); WHITE BLOOD COUNT 8.5 10^3/uL (4.0-10.0)
--- NOTE | 2020-12-03 08:39 | IPNPDOC ---
Progress Note Date of Service: Dec 03, 2020 Day#: 4 Progress Note SUBJECT: Patient reports she is doing well. Reports she had a fever last night from 0300 to 0530. Denies any pain currently. She has been pumping and able to pump 70 cc of breast milk yesterday. Reports no body aches or chills. Reports breasts are tender but denies any localized area of tenderness. Denies SOB and reports her swelling has improved since yesterday. She is voiding, eating a regular diet and ambulating. OBJECTIVE: VITAL SIGNS: Within normal limits, afebrile. Alert and oriented times three. Breath sounds clear to auscultation. Breast: engorged. No masses or erythema Abdomen: Fundus firm at U-3. Incision is approximated without erythema or drainage. Steri strips present. Extremities: Swelling has improved and is now 1+ pitting in legs and calfs and 1-2+ pitting in feet. Minimal lochia. ASSESSMENT: Day 4 postoperative, preeclampsia, fever PLAN: 1. Plan of care collaborated with Dr. Faust. Will stop Chlorthalidone and continue with Labetalol and Nifedipine. 2. CBC stat ordered. Will start antibiotics if elevated WBC count. 3. Consider discharge home when fever free for 24 hours. VS, I&O, 24H, Fishbone Vital Signs/I&O Vital Signs Date Time Temp Pulse Resp B/P (MAP) Pulse Ox O2 Delivery O2 Flow Rate FiO2 12/03/20 05:30 101.6 104 20 136/71 (92) 97 Room Air 11/30/20 09:05 2.0 11/30/20 07:39 98 Laboratory Data 24H LABS Laboratory Tests 2 12/02/20 10:43: Nucleated Red Blood Cells % (auto) 0.0, Glomerular Filtration Rate > 60.0, Uric Acid 4.7, Total Bilirubin 0.3, Aspartate Amino Transf (AST/SGOT) 17, Alanine Aminotransferase (ALT/SGPT) 29, Lactate Dehydrogenase 223, Thyroid Stimulating Hormone (TSH) 2.130 12/03/20 08:09: Nucleated Red Blood Cells % (auto) 0.0 CBC/BMP Laboratory Tests 12/02/20 10:43 12/03/20 08:09 SOFÍA NEVES CNM Dec 03, 2020 08:39
[2020-12-03] MEDS: LABETALOL 200 MG TAB PO SCH ×3 (09:10→21:43)
[2020-12-03] MEDS: DOCUSATE SODIUM 100MG CAPSULE PO SCH ×2 (09:10→21:42)
[2020-12-03] MEDS: NIFEdipine 30 MG XL TAB PO SCH (09:11)
[2020-12-03] MEDS: PRENATAL VITAMINS CHEWABLE TABLET PO SCH (09:11)
[2020-12-03] MEDS: AMPICILLIN SOD/SULBACTAM SOD 3 GM in D5W MINI-BAG PLUS 100 ML IV SCH ×2 (15:34→21:43)
[2020-12-03] MEDS: diphenhydrAMINE 50MG CAP PO SCH (21:42)
[2020-12-04] VITALS (7 sets, daily range): BP systolic 132–157; BP diastolic 64–82
[2020-12-04] MEDS: AMPICILLIN SOD/SULBACTAM SOD 3 GM in D5W MINI-BAG PLUS 100 ML IV SCH ×4 (02:45→21:28)
[2020-12-04] MEDS: PERCOCET 5MG/325MG TAB PO PRN (02:46)
[2020-12-04] MEDS: LEVOTHYROXINE 50MCG TABLET (0.05MG) PO SCH (05:58)
[2020-12-04] MEDS: LABETALOL 200 MG TAB PO SCH ×3 (05:58→21:29)
[2020-12-04] MEDS: IBUPROFEN 800 MG TAB PO PRN ×2 (07:33→16:07)
--- NOTE | 2020-12-04 08:00 | IPNPDOC ---
Progress Note Date of Service: Dec 04, 2020 Day#: 5 Progress Note SUBJECT: Doing well without complaints. Ambulating, voiding and pain is well- controlled. Reports minimal lochia. She is continued to spike fevers despite being started on broad-spectrum antibiotics. She has remained completely asymptomatic. OBJECTIVE: VITAL SIGNS: Normal to mild range BPs. Last temp was at 10 PM 101.3. Alert and oriented times three. Abdomen: Fundus firm at U-2. Soft, NTTP. Incision: Clean dry intact nonerythemic Ext: neg calf tenderness. ASSESSMENT: /postoperative day #5 status post delivery. Recovering in stable condition. Feversthis is likely due to breast engorgement. Will obtain UA and chest x-ray for exclusion PLAN: 1. Pending UA and chest x-ray, will consider discharge 24 hours afebrile VS, I&O, 24H, Fishbone Vital Signs/I&O Vital Signs Date Time Temp Pulse Resp B/P (MAP) Pulse Ox O2 Delivery O2 Flow Rate FiO2 12/04/20 06:00 97.0 71 20 142/82 (102) 98 Room Air 11/30/20 09:05 2.0 11/30/20 07:39 98 Laboratory Data 24H LABS Laboratory Tests 2 12/03/20 08:09: Nucleated Red Blood Cells % (auto) 0.0 CBC/BMP Laboratory Tests 12/03/20 08:09 IBAN ONTIVEROS MD. Dec 04, 2020 08:00
--- NOTE | 2020-12-04 08:58 | REP ---
INDICATION: postoperative fever COMPARISON: 11/30/2020 TECHNIQUE: Portable AP view of the chest FINDINGS: Stable cardiomegaly noted. The lung colbert are clear without acute consolidation, effusion, or pneumothorax. Skeletal structures are intact. IMPRESSION: Stable cardiomegaly. No acute consolidation or effusion. <Electronically signed by Govind Card > 12/04/20 [id number]
[2020-12-04] MEDS: PRENATAL VITAMINS CHEWABLE TABLET PO SCH (09:16)
[2020-12-04] MEDS: DOCUSATE SODIUM 100MG CAPSULE PO SCH ×2 (09:16→21:29)
[2020-12-04] MEDS: NIFEdipine 30 MG XL TAB PO SCH (09:17)
[2020-12-04] MEDS: diphenhydrAMINE 50MG CAP PO SCH (21:29)
--- NOTE | 2020-12-05 05:58 | DSES ---
DISCHARGE SUMMARY DATE OF ADMISSION: 11/27/2020 DATE OF DISCHARGE: 12/04/2020 DISCHARGE DIAGNOSIS: 1. Primary section, postop day #5. 2. Severe preeclampsia, stable for discharge. SURGEON: ALPA GOODSON DO HISTORY: [place] is a 40-year-old who delivered di-di twins, primary section on 11/29/2020 due to severe preeclampsia and failed induction. Her surgery was uncomplicated. She delivered a live male Twin A weighing 4 pounds, 6 ounces, Apgars were 8 and 9, male Twin b 4 pounds, 2 ounces, Apgars 8 and 9, estimated blood loss was 600 ml. Her course has been complicated by pulmonary hypertension, pulmonary edema, cardiomegaly and then she had asymptomatic fevers. She has been afebrile for 24 hours. She has been out of bed for self-care, gideon-care, neonates in the NICU. She is pumping successfully. Her pain has been well-managed with p.o. pain medication. Blood pressure managed with p.o. Procardia and p.o. Labetalol. She is voiding without difficulty. Positive bowel movements. She is requesting discharge home. OBJECTIVE: Temperature is 97.3, pulse is 75, respirations 18, BP is 157/82. She is alert and oriented x3. She does not appear uncomfortable. Skin is pink, warm and dry. Her breasts are slightly engorged, milky discharge bilaterally. Fundus is firm at 2 fingerbreadths below umbilicus. Her incision is intact. Steri-Strips are in place. No redness, no warmth, no edema, no drainage. The perineum is intact. Lochia and rubra scant. Bilateral lower extremities with scant pitting edema. CBC preoperatively on 11/29/2020 with a hemoglobin of 10.9, hematocrit 31.5, platelets 351,000. On 12/03/2020 postop CBC done due to fever with a white count of 8.5, hemoglobin 11.5, hematocrit 33.5 and platelets are 292,000. PLAN: Discharge the patient home, prescription has been provided for Procardia 30 mg p.o. once a day, Labetalol 400 mg p.o. t.i.d. She is to follow-up at [facility] in two days for a blood pressure check, two weeks for an incision check and eight weeks for a visit. I did review discharge instructions that include breast care, incision care, gideon-care, pelvic rest, activity and lifting restrictions, danger signs to report and activity restrictions, access to her care provider. The patient and her 's questions have been answered and they request discharge home.
== END 2020-12-04 23:10 | disposition home or self-care (01) | DRG 540 ==
LOC: M LDO 13:36 → M LDI 18:16 → M OBS 12-01 15:23
PROVIDERS: ADMIT Obstetrics & Gynecology; ATTEND Obstetrics & Gynecology
PROC: 3E0P7VZ Introduction of Hormone into Female Reproductive, Via Natural or Artificial Opening (ICD-10-PCS; 2020-11-27)
PROC: 10D00Z1 Extraction of Products of Conception, Low, Open Approach (ICD-10-PCS; principal; 2020-11-29 13:00)
DX: O14.14 Severe pre-eclampsia complicating childbirth (principal); Z37.2 Twins, both liveborn; Z3A.34 34 weeks gestation of pregnancy; O09.523 Supervision of elderly multigravida, third trimester; O61.0 Failed medical induction of labor

== ENCOUNTER → 2020-11-27 | Outpatient (REF) | payer BC ==
[~2020-11-27] MED LIST: AMPICILLIN SOD 1 GM in D5W MINI-BAG PLUS 50 ML IV SCH; AMPICILLIN SOD 2 GM in D5W MINI-BAG PLUS 100 ML IV STA; BETAMETHASONE SOLUSPAN 6MG/ML 5ML VIAL (J0702 PER 3MG) IM SCH; LEVO50TA5 PO; LR 1,000 ML IV SCH; NALT50TA4 PO; PERCOCET PO; PRENTAB9 PO; SYNT25TA PO
--- NOTE | 2020-11-28 10:04 | HPE ---
HISTORY AND PHYSICAL DATE OF ADMISSION: 11/27/2020 HISTORY OF PRESENT ILLNESS: [place] is a 40-year-old female, 1 para 0, status post in vitro fertilization (IVF) twin gestation , dichorionic/diamniotic (di/di), estimated gestational age 33-2/7 who was seen in the office earlier for routine visit, found to have a progressively elevated blood pressure. At this point, the decision was made to send the patient to labor and delivery for further monitoring. Upon evaluation, she was found to have preeclampsia. At this point, the decision was made to augment the patient on admission. She denies any constant headache. She does have some occasional headache that does get better with Tylenol. She does have a history of anxiety and depression. She denies any shortness of breath; no chest pain, no blurred vision. Her record reviewed. Essentially, unremarkable twin gestation. She does have a history of infertility. IVF with this . LABS: Blood type is A positive. Rubella immune. Hepatitis negative. HIV negative. Gonorrhea and chlamydia negative. One-hour sugar testing was within normal limits. Her GBS was done today; no results yet. PAST MEDICAL HISTORY: Significant for anxiety/depression, infertility, hypothyroidism. PAST SURGICAL HISTORY: Sinus surgery, bunion removal on both feet. SOCIAL HISTORY: She is ; denies any alcohol or drugs. Patient smokes but has significantly cut down during this . MEDICATIONS: - vitamin - Synthroid - Naltrexone ALLERGIES: No known drug allergies. PHYSICAL EXAMINATION: HEENT grossly within normal limits. Her abdomen was soft, nontender, non-distended, gravid. Fundal height 40 cm. Extremities: No clubbing, cyanosis; +1 to +2 lower extremity edema. Deep tendon reflexes (DTRs) 2/4 bilaterally. Vaginal examination: closed, thick and posterior. Both twins in vertex position. Tracing reviewed, category 1 tracing. ASSESSMENT: 1. Twin gestation at 33-2/7 gestation. 2. Preeclampsia; cannot rule out severe preeclampsia. 3. History of hypothyroidism on Synthroid. PLAN: Admit to labor and delivery. Routine lab and preeclamptic labs sent. Patient counseled extensively. Will do a course of steroid and plan for induction after. Risks and benefits of induction discussed with the patient including possibility of NICU admission. Patient also aware of high risk of possible section. [facility]
== END ==
LOC: M LAB REF 16:44
PROVIDERS: ATTEND Obstetrics & Gynecology
DX: Z36.85 Encounter for antenatal screening for Streptococcus B (principal)

== ENCOUNTER → 2021-04-15 | Outpatient (REF) | payer OTHER ==
[~2021-04-15] MED LIST changes: -AMPICILLIN SOD 1 GM in D5W MINI-BAG PLUS 50 ML IV SCH; -AMPICILLIN SOD 2 GM in D5W MINI-BAG PLUS 100 ML IV STA; -BETAMETHASONE SOLUSPAN 6MG/ML 5ML VIAL (J0702 PER 3MG) IM SCH; -LR 1,000 ML IV SCH
== END ==
LOC: M LAB REF 17:15
PROVIDERS: ATTEND Nurse Practitioner Family
DX: D23.5 Other benign neoplasm of skin of trunk (principal)

== ENCOUNTER → 2021-05-16 | Outpatient (REF) | payer OTHER | LOC: M LAB REF 17:20 | PROVIDERS: ATTEND Nurse Practitioner Family | DX: D22.61 Melanocytic nevi of right upper limb, including shoulder (principal) ==

== ENCOUNTER → 2021-08-15 | Outpatient (CLI) | payer OTHER ==
[2021-08-15 09:33] LABS: BASO % 0.5 % (0.0-1.0); EOS # 0.1 10^3/uL (0.0-0.5); EOS % 1.8 % (0.0-3.0); HEMATOCRIT 40.8 % (36.0-47.0); HEMOGLOBIN 14.2 g/dl (12.0-15.5); LYMPH # 2.9 10^3/uL (1.5-5.0); LYMPH % 36.2 % (24.0-44.0); MEAN CORPUSCULAR HEMOGLOBIN 33.4 pg (27.0-33.0); MEAN CORPUSCULAR HGB CONC 34.8 g/dl (32.0-36.5); MONO # 0.5 10^3/uL (0.0-0.8); MONO % 5.7 % (2.0-8.0); NEUTROPHILS # 4.4 10^3/uL (1.5-8.5); NEUTROPHILS % 55.5 % (36.0-66.0); PLATELET COUNT, AUTOMATED 340 10^3/uL (150-450); RED BLOOD COUNT 4.25 10^6/uL (4.00-5.40); WHITE BLOOD COUNT 7.9 10^3/uL (4.0-10.0)
[2021-08-15 10:04] LABS: ALBUMIN 4.1 GM/DL (3.2-5.2); ALT/SGPT 22 U/L (12-78); BILIRUBIN,TOTAL 0.4 MG/DL (0.2-1.0); BLOOD UREA NITROGEN 7 MG/DL (7-18); CALCIUM LEVEL 9.5 MG/DL (8.5-10.1); CARBON DIOXIDE LEVEL 29 MEQ/L (21-32); CHLORIDE LEVEL 105 MEQ/L (98-107); CREATININE FOR GFR 0.54 MG/DL (0.55-1.30); GLOMERULAR FILTRATION RATE > 60.0 (>58); GLUCOSE, FASTING 88 MG/DL (70-100); POTASSIUM SERUM 4.6 MEQ/L (3.5-5.1); SODIUM LEVEL 140 MEQ/L (136-145); TOTAL PROTEIN 6.9 GM/DL (6.4-8.2)
== END ==
LOC: M LAB 09:03
PROVIDERS: ATTEND Family Medicine
DX: K52.9 Noninfective gastroenteritis and colitis, unspecified (principal)

== ENCOUNTER → 2021-08-19 | Outpatient (REF) | payer OTHER | LOC: M LAB REF 09:22 | PROVIDERS: ATTEND Family Medicine | DX: K52.9 Noninfective gastroenteritis and colitis, unspecified (principal) ==

== ENCOUNTER → 2021-10-09 | Outpatient (REF) | payer OTHER | LOC: M SFHCDERM 14:12 | PROVIDERS: ATTEND Nurse Practitioner Family | DX: H92.11 Otorrhea, right ear (principal); L53.8 Other specified erythematous conditions ==

== ENCOUNTER → 2021-10-31 | Outpatient (CLI) | payer OTHER | LOC: M WHC 09-10 08:41 | PROVIDERS: ATTEND Family Medicine | DX: Z12.31 Encounter for screening mammogram for malignant neoplasm of breast (principal) ==

== ENCOUNTER → 2021-11-10 | Outpatient (CLI) | payer OTHER ==
[2021-11-10 08:35] LABS: BASO # 0.1 10^3/uL (0.0-0.2); BASO % 0.8 % (0.0-1.0); EOS # 0.2 10^3/uL (0.0-0.5); EOS % 2.9 % (0.0-3.0); HEMATOCRIT 40.7 % (36.0-47.0); LYMPH # 2.7 10^3/uL (1.5-5.0); LYMPH % 32.5 % (24.0-44.0); MEAN CORPUSCULAR HEMOGLOBIN 33.2 pg (27.0-33.0); MEAN CORPUSCULAR HGB CONC 34.4 g/dl (32.0-36.5); MEAN CORPUSCULAR VOLUME 96.4 fl (80.0-96.0); MONO # 0.6 10^3/uL (0.0-0.8); MONO % 7.3 % (2.0-8.0); NEUTROPHILS # 4.7 10^3/uL (1.5-8.5); NEUTROPHILS % 56.1 % (36.0-66.0); PLATELET COUNT, AUTOMATED 319 10^3/uL (150-450); RED BLOOD COUNT 4.22 10^6/uL (4.00-5.40); WHITE BLOOD COUNT 8.4 10^3/uL (4.0-10.0)
[2021-11-10 08:58] LABS: ALBUMIN 3.9 GM/DL (3.2-5.2); ALT/SGPT 42 U/L (12-78); BILIRUBIN,TOTAL 0.8 MG/DL (0.2-1.0); BLOOD UREA NITROGEN 4 MG/DL (7-18); CALCIUM LEVEL 9.3 MG/DL (8.5-10.1); CARBON DIOXIDE LEVEL 24 MEQ/L (21-32); CHLORIDE LEVEL 110 MEQ/L (98-107); CREATININE FOR GFR 0.54 MG/DL (0.55-1.30); GLOMERULAR FILTRATION RATE > 60.0 (>58); GLUCOSE, FASTING 116 MG/DL (70-100); SODIUM LEVEL 141 MEQ/L (136-145); TOTAL PROTEIN 6.9 GM/DL (6.4-8.2)
[2021-11-10 09:55] LABS: ERYTHROCYTE SEDIMENTATION RATE 1 mm/hr (0-20)
== END ==
LOC: M LAB 07:54
PROVIDERS: ATTEND Nurse Practitioner Family
DX: R23.8 Other skin changes (principal); H92.11 Otorrhea, right ear; L53.8 Other specified erythematous conditions

== ENCOUNTER → 2021-12-10 | Outpatient (CLI) | payer OTHER | LOC: M RAD 14:13 | PROVIDERS: ATTEND Family Medicine | DX: S92.352A Displaced fracture of fifth metatarsal bone, left foot, initial encounter for closed fracture (principal); X58.XXXA Exposure to other specified factors, initial encounter; Y92.9 Unspecified place or not applicable ==

== ENCOUNTER 2021-12-21 09:01 | Emergency (ER) | payer OTHER ==
[~2021-12-21] VITALS: Ht 160 cm; Wt 80.1 kg
[2021-12-21 09:03] VITALS: BP 125/77
[2021-12-21] MEDS ORDERED: PROP10TA56 (09:18)
[2021-12-21] MEDS ORDERED: TRAZ-257 PO (09:18)
[2021-12-21] MEDS ORDERED: SERT-141 PO (09:18)
[2021-12-21] MEDS ORDERED: IBUPROFEN 600MG TAB PO ONE (11:15)
[2021-12-21] MEDS ORDERED: IBUP-1022 PO (11:58)
== END 2021-12-21 12:29 | disposition home or self-care (01) ==
LOC: M ED 09:01
DX: S82.64XA Nondisplaced fracture of lateral malleolus of right fibula, initial encounter for closed fracture (principal); W17.2XXA Fall into hole, initial encounter; Y92.009 Unspecified place in unspecified non-institutional (private) residence as the place of occurrence of the external cause; Z79.899 Other long term (current) drug therapy

== ENCOUNTER → 2022-06-11 | Outpatient (REF) | payer OTHER ==
[~2022-06-11] MED LIST changes: +IBUP-1022 PO; +PROP10TA56; +SERT-141 PO; +TRAZ-257 PO
== END ==
LOC: M SFHCDERM 17:23
PROVIDERS: ATTEND Nurse Practitioner Family
DX: D22.5 Melanocytic nevi of trunk (principal)

== ENCOUNTER → 2022-09-01 | Outpatient (CLI) | payer OTHER ==
[2022-09-01 08:11] LABS: BASO # 0.1 10^3/uL (0.0-0.2); BASO % 0.5 % (0.0-1.0); EOS # 0.2 10^3/uL (0.0-0.5); EOS % 1.6 % (0.0-3.0); HEMATOCRIT 41.3 % (36.0-47.0); LYMPH # 3.3 10^3/uL (1.5-5.0); LYMPH % 28.5 % (24.0-44.0); MEAN CORPUSCULAR HGB CONC 33.9 g/dl (32.0-36.5); MEAN CORPUSCULAR VOLUME 103.3 fl (80.0-96.0); MONO # 0.8 10^3/uL (0.0-0.8); MONO % 6.8 % (2.0-8.0); NEUTROPHILS # 7.2 10^3/uL (1.5-8.5); NEUTROPHILS % 62.2 % (36.0-66.0); PLATELET COUNT, AUTOMATED 301 10^3/uL (150-450); WHITE BLOOD COUNT 11.6 10^3/uL (4.0-10.0)
[2022-09-01 08:44] LABS: ALBUMIN 4.2 G/DL (3.2-5.2); ALKALINE PHOSPHATASE 76 U/L (46-116); ALT/SGPT 23 U/L (7.0-40); AST/SGOT 19 U/L (<34); BILIRUBIN,TOTAL 0.5 MG/DL (0.3-1.2); BLOOD UREA NITROGEN 10 MG/DL (9-23); CALCIUM LEVEL 9.8 MG/DL (8.5-10.1); CARBON DIOXIDE LEVEL 28 MMOL/L (20-31); CHLORIDE LEVEL 103 MMOL/L (98-107); CREATININE FOR GFR 0.57 MG/DL (0.55-1.30); GLOMERULAR FILTRATION RATE > 60.0 (>58); GLUCOSE, FASTING 96 MG/DL (60-100); POTASSIUM SERUM 4.1 MMOL/L (3.5-5.1); SODIUM LEVEL 135 MMOL/L (136-145); TOTAL PROTEIN 6.9 G/DL (5.7-8.2)
[2022-09-01 08:45] LABS: FREE T4 1.15 NG/DL (0.89-1.76)
[2022-09-01 08:46] LABS: THYROID STIMULATING HORMONE 4.333 uIU/ML (0.55-4.78)
== END ==
LOC: M LAB 07:18
PROVIDERS: ATTEND Family Medicine
DX: R63.5 Abnormal weight gain (principal)

== ENCOUNTER → 2022-11-07 | Outpatient (CLI) | payer OTHER | LOC: M LAB 09:33 | PROVIDERS: ATTEND Family Medicine | DX: E05.90 Thyrotoxicosis, unspecified without thyrotoxic crisis or storm (principal) ==

== ENCOUNTER → 2022-12-07 | Outpatient (CLI) | payer OTHER | LOC: M WHC 08:33 | PROVIDERS: ATTEND Family Medicine | DX: Z12.31 Encounter for screening mammogram for malignant neoplasm of breast (principal) ==

== ENCOUNTER → 2023-05-10 | Outpatient (REF) | payer OTHER | LOC: M SFHCDERM 17:33 | PROVIDERS: ATTEND Nurse Practitioner Family | DX: L30.9 Dermatitis, unspecified (principal) ==

== ENCOUNTER → 2023-05-24 | Outpatient (CLI) | payer OTHER | LOC: M RAD 10:06 | PROVIDERS: ATTEND Nurse Practitioner Family | DX: R22.9 Localized swelling, mass and lump, unspecified (principal) ==

== ENCOUNTER → 2023-11-16 | Outpatient (CLI) | payer OTHER ==
[2023-11-16 11:02] LABS: BASO % 0.5 % (0.0-1.0); EOS # 0.2 10^3/uL (0.0-0.5); EOS % 1.9 % (0.0-3.0); HEMATOCRIT 41.3 % (36.0-47.0); HEMOGLOBIN 14.3 g/dl (12.0-15.5); LYMPH % 23.3 % (24.0-44.0); MEAN CORPUSCULAR HEMOGLOBIN 36.8 pg (27.0-33.0); MEAN CORPUSCULAR HGB CONC 34.6 g/dl (32.0-36.5); MEAN CORPUSCULAR VOLUME 106.2 fl (80.0-96.0); MONO # 0.6 10^3/uL (0.0-0.8); MONO % 6.6 % (2.0-8.0); NEUTROPHILS # 5.8 10^3/uL (1.5-8.5); NEUTROPHILS % 67.4 % (36.0-66.0); PLATELET COUNT, AUTOMATED 284 10^3/uL (150-450); RED BLOOD COUNT 3.89 10^6/uL (4.00-5.40); WHITE BLOOD COUNT 8.6 10^3/uL (4.0-10.0)
[2023-11-16 11:09] LABS: ERYTHROCYTE SEDIMENTATION RATE < 1 mm/hr (0-20)
[2023-11-16 11:32] LABS: URIC ACID 3.3 MG/DL (3.1-7.8)
[2023-11-16 11:33] LABS: C REACTIVE PROTEIN QUANTITATIV < 0.40 MG/DL (<1.0)
[2023-11-16 11:35] LABS: ALKALINE PHOSPHATASE 83 U/L (46-116); ALT/SGPT 27 U/L (7.0-40); AST/SGOT 22 U/L (<34); BILIRUBIN,TOTAL 0.6 MG/DL (0.3-1.2); BLOOD UREA NITROGEN 5 MG/DL (9-23); CALCIUM LEVEL 9.1 MG/DL (8.5-10.1); CARBON DIOXIDE LEVEL 27 MMOL/L (20-31); CHLORIDE LEVEL 106 MMOL/L (98-107); CHOLESTEROL LEVEL 192 MG/DL (<200); CHOLESTEROL RISK RATIO 3.28 (<5); CREATININE FOR GFR 0.48 MG/DL (0.55-1.30); GLOMERULAR FILTRATION RATE > 60.0 (>58); GLUCOSE, FASTING 87 MG/DL (60-100); HDL CHOLESTEROL 58.4 MG/DL (>40); LDL CHOLESTEROL 118.6 MG/DL (<100); NON-HDL-C 133.6 MG/DL; POTASSIUM SERUM 4.3 MMOL/L (3.5-5.1); SODIUM LEVEL 136 MMOL/L (136-145); TOTAL PROTEIN 6.6 G/DL (5.7-8.2); TRIGLYCERIDES LEVEL 75 MG/DL (<150)
[2023-11-16 11:36] LABS: RHEUMATOID FACTOR QUANT < 3.5 IU/ML (<14)
[2023-11-18 12:32] LABS: ANA SCREEN, IFA NEGATIVE (NEGATIVE)
[2023-11-19 02:52] LABS: CYCLIC CITRULLINATED PEPTIDE < 16 UNITS (<20)
== END ==
LOC: M LAB 09:17
PROVIDERS: ATTEND Family Medicine
DX: E03.9 Hypothyroidism, unspecified (principal); M25.50 Pain in unspecified joint

== ENCOUNTER → 2023-12-29 | Outpatient (CLI) | payer OTHER | LOC: M WHC 08:41 | PROVIDERS: ATTEND Nurse Practitioner Family | DX: N64.4 Mastodynia (principal) ==

== ENCOUNTER → 2024-04-13 | Outpatient (CLI) | payer OTHER ==
[2024-04-13 09:45] LABS: BASO % 0.3 % (0.0-1.0); EOS # 0.1 10^3/uL (0.0-0.5); EOS % 1.4 % (0.0-3.0); HEMATOCRIT 36.8 % (36.0-47.0); HEMOGLOBIN 12.6 g/dl (12.0-15.5); LYMPH % 33.8 % (24.0-44.0); MEAN CORPUSCULAR HGB CONC 34.2 g/dl (32.0-36.5); MEAN CORPUSCULAR VOLUME 105.1 fl (80.0-96.0); MONO # 0.6 10^3/uL (0.0-0.8); MONO % 7.2 % (2.0-8.0); NEUTROPHILS % 57.1 % (36.0-66.0); PLATELET COUNT, AUTOMATED 240 10^3/uL (150-450); WHITE BLOOD COUNT 8.8 10^3/uL (4.0-10.0)
[2024-04-13 10:09] LABS: ALBUMIN 3.6 G/DL (3.2-5.2); ALKALINE PHOSPHATASE 65 U/L (35-104); ALT/SGPT 17 U/L (7.0-40); AST/SGOT 17 U/L (<34); BILIRUBIN,TOTAL 0.6 MG/DL (0.3-1.2); BLOOD UREA NITROGEN 6 MG/DL (9-23); CALCIUM LEVEL 9.3 MG/DL (8.5-10.1); CARBON DIOXIDE LEVEL 29 MMOL/L (20-31); CHLORIDE LEVEL 108 MMOL/L (98-107); CREATININE FOR GFR 0.65 MG/DL (0.55-1.30); GLOMERULAR FILTRATION RATE > 60.0 (>58); GLUCOSE, FASTING 98 MG/DL (60-100); POTASSIUM SERUM 4.1 MMOL/L (3.5-5.1); SODIUM LEVEL 142 MMOL/L (136-145)
[2024-04-13 10:10] LABS: THYROID STIMULATING HORMONE 3.051 uIU/ML (0.55-4.78)
== END ==
LOC: M LAB 08:55
PROVIDERS: ATTEND Family Medicine
DX: R42 Dizziness and giddiness (principal)

== ENCOUNTER → 2024-07-26 | Outpatient (CLI) | payer OTHER | LOC: M WHC 11:12 | PROVIDERS: ATTEND Family Medicine | DX: N63.11 Unspecified lump in the right breast, upper outer quadrant (principal) ==

== ENCOUNTER → 2024-11-09 | Outpatient (REF) | payer OTHER ==
[2024-11-09 17:44] LABS: BASO # 0.1 10^3/uL (0.0-0.2); BASO % 0.6 % (0.0-1.0); EOS # 0.1 10^3/uL (0.0-0.5); EOS % 1.3 % (0.0-3.0); LYMPH # 2.9 10^3/uL (1.5-5.0); LYMPH % 35.2 % (24.0-44.0); MONO # 0.5 10^3/uL (0.0-0.8); MONO % 6.6 % (2.0-8.0); NEUTROPHILS # 4.6 10^3/uL (1.5-8.5); NEUTROPHILS % 56.1 % (36.0-66.0); PLATELET COUNT, AUTOMATED 262 10^3/uL (150-450)
[2024-11-09 17:51] LABS: ALT/SGPT 22 U/L (7.0-40); AST/SGOT 20 U/L (<34); CALCIUM LEVEL 9.7 MG/DL (8.5-10.1); CARBON DIOXIDE LEVEL 23 MMOL/L (20-31); CHLORIDE LEVEL 107 MMOL/L (98-107); CHOLESTEROL LEVEL 218 MG/DL (<200); CHOLESTEROL RISK RATIO 3.08 (<5); CREATININE FOR GFR 0.55 MG/DL (0.55-1.30); GLOMERULAR FILTRATION RATE > 90.0 (>58); LDL CHOLESTEROL 130.2 MG/DL (<100); NON-HDL-C 147.4 MG/DL; POTASSIUM SERUM 3.7 MMOL/L (3.5-5.1); SODIUM LEVEL 142 MMOL/L (136-145); TRIGLYCERIDES LEVEL 86 MG/DL (<150)
[2024-11-09 18:25] LABS: HEPATITIS C VIRUS ABY INDEX < 0.02 INDEX (<0.8)
== END ==
LOC: M SFHCLERA 08:07
PROVIDERS: ATTEND Nurse Practitioner Family
DX: L40.9 Psoriasis, unspecified (principal)

== ENCOUNTER → 2025-03-05 | Outpatient (CLI) | payer OTHER ==
[~2025-03-05] MED LIST changes: -IBUP-1022 PO; +IBUP600T42 PO
== END ==
LOC: M LAB 14:48
PROVIDERS: ATTEND Family Medicine
DX: S60.012A Contusion of left thumb without damage to nail, initial encounter (principal); X58.XXXA Exposure to other specified factors, initial encounter; Y92.9 Unspecified place or not applicable; Y93.9 Activity, unspecified; Y99.9 Unspecified external cause status